=== PATIENT | female | born 1945 | race Caucasian/White ===

== ENCOUNTER 2023-08-20 19:32 | Emergency (ER) | payer OTHER ==
[~2023-08-20] VITALS: Ht 157.5 cm; Wt 59.0 kg
[2023-08-20 19:59] VITALS: O2SAT 91
[2023-08-20 20:24] LABS: BASOPHILS % (AUTO) 0.2 % (0.0-2.0); DIFFERENTIAL COMMENT 0; EOSINOPHILS # (AUTO) 0.1 K/uL (0.0-0.7); EOSINOPHILS % (AUTO) 0.5 % (0.0-7.0); HEMATOCRIT 49.5 % (31.2-41.9); HEMOGLOBIN 16.1 g/dL (10.9-14.3); LYMPHOCYTES # (AUTO) 1.1 K/uL (0.8-4.8); MEAN CORPUSCULAR HEMOGLOBIN 29.1 uug (24.7-32.8); MEAN CORPUSCULAR HGB CONC 33 g/dL (32.3-35.6); MEAN CORPUSCULAR VOLUME 89.2 fL (75.5-95.3); MONOCYTES # (AUTO) 0.5 K/uL (0.1-1.30); MONOCYTES % (AUTO) 4.3 % (0.0-11.0); NEUTROPHILS # (AUTO) 9.1 K/uL (1.8-8.9); PLATELET COUNT (AUTO) 108 K/uL (179-408); RED BLOOD CELL COUNT(AUTO) 5.54 MIL/uL (3.63-4.92); RED CELL DISTRIBUTION WIDTH 13.7 % (12.3-17.7); WHITE BLOOD COUNT (AUTO) 10.7 K/uL (3.8-11.8)
[2023-08-20] MEDS: IV NORMAL SALINE 1000 ML BAG IV ONE (20:32)
[2023-08-20 20:35] LABS: CALCIUM 8.5 mg/dL (8.5-10.1); CARBON DIOXIDE 30 mmol/L (21-32); CHLORIDE 99 mmol/L (98-107); CREATININE 0.8 mg/dL (0.6-1.3); GLUCOSE 91 mg/dL (74-106); POTASSIUM 3.6 mmol/L (3.5-5.1); SODIUM SERUM 141 mmol/L (136-145); UREA NITROGEN, BLOOD 15 mg/dL (7-18)
[2023-08-20 20:38] LABS: AMMONIA < 10 umol/L (11-32)
[2023-08-20 20:42] LABS: ETHANOL < 3 MG/DL (0-10)
[2023-08-20 20:44] LABS: ACETAMINOPHEN < 2.0 ug/mL (10-30); ALANINE AMINOTRANSFERASE 18 U/L (14-59); ALBUMIN 2.2 g/dL (3.4-5.0); ALKALINE PHOSPHATASE 114 U/L (50-136); ASPARTATE AMINOTRANSFERASE 22 U/L (15-37); BILIRUBIN,DIRECT 0.8 mg/dL (0.0-0.2); BILIRUBIN,TOTAL 1.9 mg/dL (0.2-1.0); TOTAL PROTEIN, SERUM 6.1 g/dL (6.4-8.2)
[2023-08-20 20:49] LABS: THYROID STIMULATING HORMONE 3.071 mIU/mL (0.358-3.740)
[2023-08-20] MEDS ORDERED: levoFLOXacin 750MG/D5W 150 ML IV ONE (22:31)
[2023-08-20] MEDS: levoFLOXacin 750 MG/D5W 150 ML PIGGYBACK IV ONE (22:32)
== END 2023-08-21 00:30 | disposition short-term general hospital (02) ==
LOC: ER 19:34
DX: J18.1 Lobar pneumonia, unspecified organism (principal); E86.0 Dehydration; R41.0 Disorientation, unspecified; E05.00 Thyrotoxicosis with diffuse goiter without thyrotoxic crisis or storm; J44.9 Chronic obstructive pulmonary disease, unspecified; F17.210 Nicotine dependence, cigarettes, uncomplicated
CPT/HCPCS: 80076; 80048; 82140; 84443; 85025; 87040 ×2; 84484 ×2; 36415; 93005; 71045; 72170; 70450; 72125; 99291; 96361; 96365; 80299; 80320; 99406; J1956; J7040; A4606; A4663; G0480